=== PATIENT | male | born 1985 | race Caucasian/White ===

== ENCOUNTER 2022-06-26 08:09 | Emergency (ER) | payer SELFPAY ==
[~2022-06-26] VITALS: Ht 172.7 cm; Wt 72.6 kg
[2022-06-26] MEDS ORDERED: LIDOCAINE 1% INJ 50 ML MDV IJ ONE (09:04)
--- NOTE | 2022-06-26 09:24 | NUR ---
DR PITTS AT BEDSIDE FOR LAC REPAIR
[2022-06-26] MEDS ORDERED: CEPHALEXIN MONOHYDRATE 500 MG CAPSULE PO ONE (09:25)
[2022-06-26] MEDS ORDERED: CEPH500T PO (09:27)
[2022-06-26] MEDS: CEPHALEXIN MONOHYDRATE 500 MG CAPSULE PO ONE (09:30)
--- NOTE | 2022-06-26 09:30 | NUR ---
KEFLEX PO GIVEN INDICATED, NALLELY WELL
--- NOTE | 2022-06-26 09:33 | NUR ---
TECH AT BEDSIDE FOR WOUND CARE
[2022-06-26 09:47] VITALS: BP 128/78
== END 2022-06-26 09:06 | disposition home or self-care (01) ==
LOC: ER 08:23
DX: S61.212A Laceration without foreign body of right middle finger without damage to nail, initial encounter (principal); Z60.2 Problems related to living alone; X58.XXXA Exposure to other specified factors, initial encounter; Y93.89 Activity, other specified; Y92.89 Other specified places as the place of occurrence of the external cause; Y99.8 Other external cause status
CPT/HCPCS: 99283; 12002; J3490; A6403